=== PATIENT | male | born 1980 | race Caucasian/White ===

== ENCOUNTER 2016-12-01 16:17 | Emergency (ER) | payer MEDICAID ==
[~2016-12-01] VITALS: Ht 172.7 cm; Wt 75.0 kg
[2016-12-01] MEDS ORDERED: HYDROCODONE/APAP 7.5/325MG 1 TAB TABLET PO ONE (20:00)
[2016-12-01 20:29] VITALS: BP 130/69
== END 2016-12-01 20:30 | disposition home or self-care (01) ==
LOC: ER 16:32
DX: S39.012A Strain of muscle, fascia and tendon of lower back, initial encounter (principal); S16.1XXA Strain of muscle, fascia and tendon at neck level, initial encounter; V49.88XA Car occupant (driver) (passenger) injured in other specified transport accidents, initial encounter; Y93.89 Activity, other specified; Y92.410 Unspecified street and highway as the place of occurrence of the external cause; Y99.8 Other external cause status
CPT/HCPCS: 71010; 72100; 72125; 99284; Z7610